=== PATIENT | male | born 1955 | race African-American/Black ===

== ENCOUNTER 2021-02-19 12:28 | Emergency (ER) | payer OTHER ==
--- NOTE | 2021-02-19 14:36 | ER ---
Nurse's Notes [facility] Name: Brenden Worthy Age: 65 yrs Sex: Male : 1955 Arrival Date: 02/19/2021 Time: 12:33 Bed Waiting Private MD: Diagnosis: Presentation: 02/19 12:59 Chief complaint: Patient states: he wanted to come to the ER to check his blood ap3 pressure because he hasn't taken his blood pressure medicine in 7 weeks. Patient states he also has heartburn. Coronavirus screen: At this time, the client does not indicate any symptoms associated with coronavirus-19. Ebola Screen: No symptoms or risks identified at this time. Initial Sepsis Screen: Does the patient meet any 2 criteria? No. Patient's initial sepsis screen is negative. Does the patient have a suspected source of infection? No. Patient's initial sepsis screen is negative. Risk Assessment: Do you want to hurt yourself or someone else? Patient reports no desire to harm self or others. Onset of symptoms is unknown. 12:59 Method Of Arrival: Ambulatory ap3 13:03 Acuity: LIZZIE 3 ap3 Triage Assessment: 13:03 General: Appears in no apparent distress. Behavior is calm, cooperative. Pain: Denies ap3 pain. Cardiovascular: Capillary refill < 3 seconds Patient's skin is warm and dry. Respiratory: Airway is patent Respiratory effort is even, unlabored, Respiratory pattern is regular, symmetrical. GI: Reports indigestion. Historical: - Allergies: 13:00 No Known Allergies; ap3 - Home Meds: 13:00 metformin 500 mg Oral tab 1 tab 2 times per day [Active]; amlodipine 10 mg tab 1 tab ap3 once daily [Active]; tamsulosin 0.4 mg oral cap 1 cap once daily [Active]; omeprazole 20 mg Oral TbEC twice a day [Active]; losartan 100 mg oral tab 1 tab once daily [Active]; - PMHx: 13:00 Hypertensive disorder; Diabetes mellitus; enlarged prostate; Gastroesophageal reflux ap3 disease; - Immunization history:: Adult Immunizations unknown, Client reports receiving the 2nd dose of the Covid vaccine. - Social history:: Smoking status: Patient denies any tobacco usage or history of. Screenin:04 Abuse screen: Denies threats or abuse. Nutritional screening: No deficits noted. ap3 Tuberculosis screening: No symptoms or risk factors identified. Vital Signs: 13:03 BP 167 / 104; Pulse 86; Resp 17; Temp 98.2(TE); Pulse Ox 99% on R/A; Weight 104.33 kg; ap3 Height 2 ft. 10 in. (86.36 cm); 13:07 BP 161 / 101; Pulse 84; Resp 16; Pulse Ox 100% on R/A; ap3 13:03 Body Mass Index 139.88 (104.33 kg, 86.36 cm) ap3 ED Course: 12:33 Patient arrived in ED. mr 13:03 Triage completed. ap3 13:04 Arm band placed on right wrist. ap3 Administered Medications: No medications were administered Outcome: 14:35 Patient left the ED. ap3 Signatures: Lexus Brito Amanda, RN RN ap3
[2021-02-19 14:40] VITALS: TEMP 98.2
[2021-02-19 14:41] VITALS: BP 161/101; O2SAT 100
== END 2021-02-19 14:35 | disposition left against medical advice (07) ==
LOC: ER 12:28
DX: Z53.21 Procedure and treatment not carried out due to patient leaving prior to being seen by health care provider (principal)
CPT/HCPCS: 99281

== ENCOUNTER 2021-09-23 10:47 | Emergency (ER) | payer OTHER ==
--- OUTSIDE RECORDS SUMMARY | 2021-09-23 10:49 | XMS REPORT | Continuity of Care Document ---
:1955 Author Organization [facility] t Address [address] [place] [address] Care Team Providers Name Role Phone Brandon Betts Attending Clinician Unavailable Francis Attending Clinician Unavailable Manav Attending Clinician Unavailable Problems This patient has no known problems. Allergies, Adverse Reactions, Alerts This patient has no known allergies or adverse reactions. Medications Ordered Filled Start Stop Current Ordering Indication Dosage Frequency Signature Comments Components Source Medication Medication Date Date Medication? Clinician (SIG) Name Name Meclizine Meclizine Yes Shanice 1 tablet Common HCl HCl [facility] Procedures This patient has no known procedures. Encounters Start End Encounter Admission Attending Care Care Encounter Source Date/Time Date/Time Type Type Clinicians Facility Department ID 2021-06-03 Outpatient Betts, [facility] Common 13:25:34 Brandon [id number] [facility] 2021-06-03 Outpatient Betts, [facility] [id number] Common 12:56:42 Brandon [id number] [facility] 2021-06-03 Outpatient Betts, [facility] [id number] Common 12:46:42 Brandon [id number] [facility] 2021-06-03 Outpatient Betts, [facility] [id number] Common 12:43:24 Brandon [id number] [facility] 2021-06-03 Outpatient Betts, [facility] [id number] Common 12:35:42 Brandon [id number] [facility] 2021-06-03 Outpatient Betts, [facility] [id number] Common 12:34:44 Brandon [id number] [facility] 2021-06-03 Outpatient Betts, [facility] [id number] Common 12:32:33 Brandon [id number] [facility] 2021-06-03 Outpatient Betts, [facility] [id number] Common 12:31:23 Brandon [id number] [facility] 2021-06-03 Outpatient [facility] [id number] Common 12:30:48 [id number] [facility] 2021-06-03 Outpatient [facility] [id number] Common 12:30:21 [id number] [facility] 2021-06-03 Outpatient [facility] [id number] Common 12:20:16 [id number] [facility] 2021-06-03 Outpatient Blanco, Kin [facility] [id number] Common 12:08:37 [id number] [facility] 2021-06-03 Outpatient [facility] [id number] Common 12:07:59 [id number] [facility] 2021-06-03 Outpatient Betts, [facility] [id number] Common 12:00:25 Brandon [id number] [facility] 2021-06-03 Outpatient Millender, [facility] [id number] Common 11:10:16 Shanice [id number] [facility] 2021-06-03 Outpatient Millender, [facility] [id number] Common 11:08:17 Shanice [id number] [facility] 2021-01-05 2021-01-05 ambulatory [facility] [id number] Common 00:00:00 00:00:00 [facility] 2020-10-15 2020-10-15 Outpatient [facility] [id number] Common 00:00:00 00:00:00 [facility] 2020-09-01 2020-09-01 Outpatient [facility] [id number] Common 00:00:00 00:00:00 [facility] 2020-08-12 2020-08-12 Outpatient [facility] [id number] Common 00:00:00 00:00:00 [facility] 2020-08-07 2020-08-07 Outpatient [facility] [id number] Common 00:00:00 00:00:00 [facility] 2020-07-09 2020-07-09 Outpatient [facility] [id number] Common 00:00:00 00:00:00 [facility] 2020-06-20 2020-06-20 Outpatient [facility] [id number] Common 00:00:00 00:00:00 [facility] 2020-05-20 2020-05-20 Outpatient [facility] [id number] Common 00:00:00 00:00:00 [facility] 2020-04-07 2020-04-07 Outpatient [facility] [id number] Common 00:00:00 00:00:00 [facility] 2020-03-25 2020-03-25 Outpatient [facility] [id number] Common 00:00:00 00:00:00 [facility] 2020-03-06 2020-03-06 Outpatient [facility] [id number] Common 00:00:00 00:00:00 [facility] 2020-03-05 2020-03-05 Outpatient [facility] [id number] Common 00:00:00 00:00:00 [facility] 2019-08-29 2019-08-29 [facility] [id number] Common 16:09:00 16:09:00 [facility] 2019-07-04 2019-07-04 [facility] [id number] Common 08:30:00 08:30:00 [facility] 2019-03-23 2019-03-23 [facility] [id number] Common 13:00:00 13:00:[address] [facility] 2019-01-30 2019-01-30 [facility] [id number] Common 13:47:00 13:47:[address] [facility] 2019-01-10 2019-01-10 [facility] [id number] Common 09:30:00 09:30:[address] [facility] 2018-12-22 2018-12-22 [facility] [id number] Common 13:20:00 13:20:[address] [facility] 2018-11-14 2018-11-14 [facility] [id number] Common 15:25:00 15:25:[address] [facility] 2018-09-18 2018-09-18 [facility] [id number] Common 16:03:00 16:03:[address] [facility] 2018-09-18 2018-09-18 [facility] [id number] Common 11:00:00 11:00:[address] [facility] 2018-06-20 2018-06-20 [facility] [id number] Common 19:38:00 19:38:[address] [facility] 2018-06-20 2018-06-20 [facility] [id number] Common 09:30:00 09:30:[address] [facility] Results This patient has no known results.
--- NOTE | 2021-09-23 12:05 | ER ---
Nurse's Notes [facility] Name: Brenden Worthy Age: 66 yrs Sex: Male : 1955 Arrival Date: 09/23/2021 Time: 10:48 Bed DIS2 Private MD: Diagnosis: Medication Refill Presentation: 09/23 11:32 Chief complaint: Patient states: he has been out of his blood pressure medication for 2 ap3 months, and can't see a dr until October 07. Coronavirus screen: At this time, the client does not indicate any symptoms associated with coronavirus-19. Ebola Screen: No symptoms or risks identified at this time. Initial Sepsis Screen: Does the patient meet any 2 criteria? No. Patient's initial sepsis screen is negative. Does the patient have a suspected source of infection? No. Patient's initial sepsis screen is negative. Risk Assessment: Do you want to hurt yourself or someone else? Patient reports no desire to harm self or others. Onset of symptoms is unknown. 11:32 Method Of Arrival: Ambulatory ap3 11:32 Acuity: LIZZIE 3 ap3 Triage Assessment: 11:33 General: Appears in no apparent distress. Behavior is calm, cooperative. Pain: Denies ap3 pain. Neuro: Level of Consciousness is awake, alert, obeys commands, Oriented to person, place, time, situation, Appropriate for age Gait is steady, Speech is normal. Historical: - Allergies: 11:33 No Known Allergies; ap3 - PMHx: 11:33 diabetes mellitus; enlarged prostate; Gastroesophageal reflux disease; Hypertensive ap3 disorder; - Immunization history:: Client reports receiving the 2nd dose of the Covid vaccine. - Social history:: Smoking status: Patient denies any tobacco usage or history of. Screenin:33 Abuse screen: Denies threats or abuse. Nutritional screening: No deficits noted. ap3 Tuberculosis screening: No symptoms or risk factors identified. Fall Risk None identified. Assessment: 12:11 General: Appears in no apparent distress. comfortable, Behavior is calm, cooperative. ss Pain: Denies pain. Neuro: Level of Consciousness is awake, alert, obeys commands, Oriented to person, place, time, situation, Hcc Coders are equal bilaterally. Cardiovascular: Capillary refill < 3 seconds is brisk in bilateral fingers. Respiratory: Airway is patent Respiratory effort is even, unlabored, Respiratory pattern is regular, symmetrical. GI: No signs and/or symptoms were reported involving the gastrointestinal system. Derm: Skin is intact, is healthy with good turgor, Skin is dry, Skin is pink, warm \T\ dry. normal. Vital Signs: 11:32 BP 150 / 89; Pulse 81; Resp 17; Temp 97.6; Pulse Ox 100% ; Weight 104.33 kg; Height 5 ap3 ft. 10 in. (177.80 cm); 11:32 Body Mass Index 33.00 (104.33 kg, 177.80 cm) ap3 ED Course: 10:48 Patient arrived in ED. am2 11:05 Jeferson Alanis PA is PHCP. cp 11:05 Barrett Lara DO is Attending Physician. cp 11:33 Triage completed. ap3 11:33 Arm band placed on right wrist. ap3 12:06 Danitza Fonseca RN is Primary Nurse. ss 12:10 No provider procedures requiring assistance completed. Patient did not have IV access ss during this emergency room visit. 12:11 Patient has correct armband on for positive identification. ss Administered Medications: No medications were administered Medication: 11:33 VIS not applicable for this client. ap3 Outcome: 12:05 Discharge ordered by MD. cp 12:10 Discharged to home ambulatory. ss 12:10 Condition: good 12:10 Discharge instructions given to patient, Instructed on discharge instructions, follow up and referral plans. medication usage, Demonstrated understanding of instructions, follow-up care, medications. 12:12 Patient left the ED. ss Signatures: Danitza Fonseca RN RN Jeferson Alanis PA PA cp Moreno, Amanda am2 Prokisch, Amanda, RN RN ap3
--- NOTE | 2021-09-23 12:05 | EDPHYS ---
Physician Documentation [facility] Name: Brenden Worthy Age: 66 yrs Sex: Male : 1955 Arrival Date: 09/23/2021 Time: 10:48 Bed DIS2 Private MD: ED Physician Barrett Lara HPI: 09/23 11:55 This 66 yrs old Black Male presents to ER via Ambulatory with complaints of High Blood cp Pressure. 11:55 The patient presents to the emergency department requesting refill(s) for: Amlodipine, cp Metformin, Losartan, and Omeprazole. The patient chronically suffers from diabetes, hypertension, GERD. Associated signs and symptoms: The patient has no apparent associated signs or symptoms. Severity of symptoms: in the emergency department the blood pressure is systolic pressure of 150. 11:55 Patient reports he has been out of blood pressure medications for past 2 months. Denies cp chest pain, denies headache. Reports noticed GERD symptoms since running out of prescribed omeprazole. Historical: - Allergies: 11:33 No Known Allergies; ap3 - PMHx: 11:33 diabetes mellitus; enlarged prostate; Gastroesophageal reflux disease; Hypertensive ap3 disorder; - Immunization history:: Client reports receiving the 2nd dose of the Covid vaccine. - Social history:: Smoking status: Patient denies any tobacco usage or history of. ROS: 12:00 Constitutional: Negative for body aches, chills, fever. cp 12:00 Eyes: Negative for injury, pain, redness, and discharge. cp 12:00 Cardiovascular: Negative for chest pain, edema, palpitations. 12:00 Respiratory: Negative for cough, shortness of breath, wheezing. 12:00 Abdomen/GI: Negative for abdominal pain, nausea, vomiting, and diarrhea, constipation. 12:00 Neuro: Negative for altered mental status, headache, numbness, syncope, weakness. 12:00 All other systems are negative. Exam: 12:02 Constitutional: The patient appears in no acute distress, alert, awake, cp non-diaphoretic, non-toxic, well developed, well nourished. 12:02 Head/Face: Normocephalic, atraumatic. cp 12:02 Chest/axilla: Inspection: normal. 12:02 Cardiovascular: Rate: normal, Rhythm: regular, Edema: is not appreciated, JVD: is not appreciated. 12:02 Respiratory: the patient does not display signs of respiratory distress, Respirations: normal, no use of accessory muscles, no retractions, labored breathing, is not present, Breath sounds: are clear throughout, no decreased breath sounds, no stridor, no wheezing. 12:02 Abdomen/GI: Inspection: abdomen appears normal, Palpation: abdomen is soft and non-tender, in all quadrants. 12:02 Neuro: Orientation: to person, place \T\ time. Mentation: is normal, Motor: moves all fours, strength is normal, Sensation: is normal, Gait: is steady. Vital Signs: 11:32 BP 150 / 89; Pulse 81; Resp 17; Temp 97.6; Pulse Ox 100% ; Weight 104.33 kg; Height 5 ap3 ft. 10 in. (177.80 cm); 11:32 Body Mass Index 33.00 (104.33 kg, 177.80 cm) ap3 MDM: 12:05 Patient medically screened. cp 12:05 Differential diagnosis: hypertensive crisis, Malignant HTN, CVA, intracerebral cp hemorrhage. 12:05 Data reviewed: vital signs, nurses notes. Counseling: I had a detailed discussion with cp the patient and/or guardian regarding: the historical points, exam findings, and any diagnostic results supporting the discharge/admit diagnosis, the presence of at least one elevated blood pressure reading (>120/80) during this emergency department visit, the need for outpatient follow up, a family practitioner, an resist coater developer, to return to the emergency department if symptoms worsen or persist or if there are any questions or concerns that arise at home. Administered Medications: No medications were administered Disposition: 16:08 Co-signature as Attending Physician, Barrett Lara DO I was immediately available on-site ms3 in the Emergency Department for consultation in the care of the patient.. Disposition Summary: 09/23/21 12:05 Discharge Ordered Location: Home cp Problem: new cp Symptoms: have improved cp Condition: Stable cp Diagnosis - Medication Refill cp Followup: cp - With: Private Physician - When: 1 week - Reason: future medication refills Discharge Instructions: - Discharge Summary Sheet cp - Medicine Refill at the Emergency Department cp Forms: - Medication Reconciliation Form cp - Thank You Letter cp - Antibiotic Education cp - Prescription Opioid Use cp Prescriptions: - Flomax 0.4 mg Oral capsule - take 1 capsule by ORAL route once daily 1/2 hour following the same meal each cp day; 30 capsule; Refills: 0, Product Selection Permitted - amlodipine 10 mg Oral tablet - take 1 tablet by ORAL route once daily; 30 tablet; Refills: 0, Product cp Selection Permitted - losartan 100 mg Oral tablet - take 1 tablet by ORAL route once daily; 30 tablet; Refills: 0, Product cp Selection Permitted - omeprazole 20 mg Oral capsule,delayed release(DR/EC) - take 1 capsule by ORAL route once daily; 30 capsule; Refills: 0, Product cp Selection Permitted - Metformin 500 mg Oral tablet extended release 24 hr - take 1 tablet by ORAL route 2 times per day with evening meal; 60 tablet; cp Refills: 0, Product Selection Permitted Signatures: Jeferson Alanis PA PA cp Prokisch, Amanda, RN RN ap3 Barrett Lara DO DO ms3
[2021-09-23 12:16] VITALS: BP 150/89; TEMP 97.6; O2SAT 100
== END 2021-09-23 12:12 | disposition home or self-care (01) ==
LOC: ER 10:47
DX: Z76.0 Encounter for issue of repeat prescription (principal)
CPT/HCPCS: 99281